=== PATIENT | female | born 1935 | race Caucasian/White ===

== ENCOUNTER → 2016-11-20 | Outpatient (CLI) | payer OTHER ==
[~2016-11-20] MED LIST: ALDACTONE PO; ALDACTONE25 MG PO; AMLODIPINE BESYL5 MG PO; ASPIRIN PO; ASPIRIN81 M2 PO; AZITHROMYCIN250 MG PO; BAYER CHEWABLE81 MG PO; CALCIUM 500 + D1 TAB; CALCIUM 600 +1 EAC5 PO; CENTRUM SILVER; CLARITIN10 M3 PO; CLONIDINE; COUMADIN PO; COUMADIN5 MG PO; DICLOFENAC; DOK100 MG PO; FAMOTIDINE; FUROSEMIDE40 MG PO; HYDROCODON-ACE1 EAC7 PO; IRON325 ( 652 PO; IRON325 MG PO; KCL; KEFLEX500 MG PO; LASIX; LASIX PO; LATANOPROST2.5 ML OU; LIPITOR; LIPITOR20 MG PO; LOPRESSOR PO; LOTREL 10/20 MG1 CAP; MULTIPLE VITAMI1 T11 PO; MULTIVITAMINS1 EAC3 PO; NEXIUM; NORVASC PO; PATIENT'S PHARMACY; PLAVIX; PREVACID; PROAIR HFA8.5 GM INH; SLOW FE160 MG PO; SOTALOL AF80 M1 PO; SULAR PO; TOPROL XL; TYLOX 5/500 CAP1 CAP PO; VITAMIN B-6; XALATAN; ZYVOX600 MG PO
--- NOTE | ~2016-11-20 | XA30 ---
[facility] A Service of [facility] & [facility] RADIOLOGY TEXT RESULTS PATIENT: MARTINEZ NYE [facility] : 33 UNIT #: [id number] AGE: [address]: Russell Heart MD SEX: F ORDER DR: [id number] [facility] [address] [place], [place] [address] [id number] O MR#: [id number] Acc #: [id number] NAME: MARTINEZ NYE : 1935 SEX: F STUDY DATE/TIME: 11/20/2016 10:48 UNIT: [facility] ROOM: STUDY DESCRIPTION: XA Arthrocentesis Major Joint Attending Physician: Russell Heart M.D. Ordering Physician: Russell Heart M.D. Primary Care Physician: Jonathan Lorenz Jr., M.D. MEDICAL IMAGING REPORT This report is preliminary unless electronic signature is present EXAM Left hip injection. INDICATION Left hip pain and arthritis. PROCEDURE The risks, benefits, and alternatives to the procedure were explained to the patient, and signed informed consent was obtained. The patient was placed supine on the angiographic table and was prepped and draped in the usual sterile fashion. Time-out was performed as per protocol. Skin and subcutaneous tissues were assessed with buffered lidocaine and a 22-gauge spinal needle was advanced into the joint space. Initial contrast showed opacification of the bursa and I subsequently repositioned the needle. Contrast injection did confirm location within the joint space. I instilled a combination of lidocaine, bupivacaine and Depo-Medrol. Needle was then removed and manual pressure was applied until hemostasis was obtained. Total fluoroscopy time 0.3 minutes. AK was 3 mGy. IMPRESSION Successful fluoroscopically guided left hip injection as noted above. Fluoroscopy was used during the procedure and permanent images were saved. Dictated by... Mackenzie Braden M.D. THIS IS AN ELECTRONICALLY VERIFIED REPORT Mackenzie Braden M.D. at 11/21/2016 5:21 PM AFF/tmw TD: 11/21/2016 09:28 [facility] A Service of [facility] & [facility] RADIOLOGY TEXT RESULTS PATIENT: MARTINEZ NYE LOCATION: [facility] #: [id number] : [birth year] UNIT #: [id number] AGE: [address]: Russell Heart MD SEX: F ORDER DR: JOB #: [id number] MEDICAL IMAGING REPORT Page 1 of 1 COPY
== END | disposition home or self-care (01) ==
LOC: CIVR 10:21
PROC: 3E0U33Z Introduction of Anti-inflammatory into Joints, Percutaneous Approach (ICD-10-PCS; principal; 2016-11-20)
PROC: 3E0U3BZ Introduction of Anesthetic Agent into Joints, Percutaneous Approach (ICD-10-PCS; 2016-11-20)
DX: M25.552 Pain in left hip (principal); M19.90 Unspecified osteoarthritis, unspecified site
CPT/HCPCS: 77002; J1030; Q9966

== ENCOUNTER → 2016-12-05 | Outpatient (CLI) | payer OTHER ==
--- NOTE | ~2016-12-05 | BD1 ---
[facility] A Service of [facility] & [facility] RADIOLOGY TEXT RESULTS PATIENT: MARTINEZ NYE LOCATION: [facility] : 33 UNIT #: [id number] AGE: [address]: Jonathan Lorenz MD SEX: F ORDER DR: [id number] [facility] [address] [place], [place] [address] [id number] O MR#: [id number] Acc #: [id number] NAME: MARTINEZ NYE : 1935 SEX: F STUDY DATE/TIME: 12/05/2016 10:06 UNIT: [facility] ROOM: STUDY DESCRIPTION: BD Dexa Bone Dens 1+ Site Attending Physician: Jonathan Lorenz Jr., M.D. Ordering Physician: Jonathan Lorenz Jr., M.D. Primary Care Physician: Jonathan Lorenz Jr., M.D. MEDICAL IMAGING REPORT This report is preliminary unless electronic signature is present EXAM DEXA scan 12/05/2016 HISTORY Status post menopause with no hormone replacement therapy. Osteopenia. Hypertension with blood pressure medication. Steroid use. Fracture of femur and wrist in last 10 years. FINDINGS Bone mineral density in the lumbar spine from L1-L4 was 1.117 g/cm2 which is 0.6 standard deviations above the mean when compared to the young adult reference population which is within the range of normal. This is 3.5 standard deviations above the mean when compared to the age-matched population. Compared with 10/17/2009 there has been an increase in bone mineral density in the lumbar spine of 5.1%. Bone mineral density in the right hip was 0.805 g/cm2 which is 1.1 standard deviations below the mean when compared to the young adult reference population which is characteristic of osteopenia. This is 1.1 standard deviations above the mean when compared to the age-matched population. IMPRESSION Bone mineral density in the lumbar spine within the range of normal and within the right hip characteristic of osteopenia. Compared with 10/17/2009 there has been an increase in bone mineral density in the lumbar spine. Dictated by... Donald Rodrigues M.D. THIS IS AN ELECTRONICALLY VERIFIED REPORT Donald Rodrigues M.D. at 12/06/2016 8:02 AM KRT/cmm [facility] A Service of [facility] & [facility] RADIOLOGY TEXT RESULTS PATIENT: MARTINEZ NYE LOCATION: [facility] #: [id number] : 33 UNIT #: [id number] AGE: [address]: Jonathan Lorenz MD SEX: F ORDER DR: TD: 12/05/2016 12:58 JOB #: [id number] MEDICAL IMAGING REPORT Page 1 of 1 COPY
== END | disposition home or self-care (01) ==
LOC: CWCC 09:32
DX: Z13.820 Encounter for screening for osteoporosis (principal); M97.8XXA Periprosthetic fracture around other internal prosthetic joint, initial encounter; Z78.0 Asymptomatic menopausal state; M85.88 Other specified disorders of bone density and structure, other site
CPT/HCPCS: 77080

== ENCOUNTER 2016-12-11 10:08 | Inpatient (IN) | payer OTHER ==
--- NOTE | ~2016-12-11 | CO ---
Unit #: [id number] #: [id number] Patient: MARTINEZ NYE [id number] [address] [address] [id number] I MR#: [id number] NAME: MARTINEZ NYE. ROOM: 569 Age: 81 Sex: F Admission Date: 12/11/2016 : 1935 Attending Physician: Joseph Reis M.D. Primary Care Physician: Jonathan Lorenz Jr., M.D. CONSULTATION REPORT REASON FOR CONSULTATION Pneumonia. CHIEF COMPLAINT/HISTORY OF PRESENT ILLNESS This patient basically is an 81-year-old female admitted with impression of shortness of breath. Has a history of atrial fibrillation, sick sinus syndrome, coronary artery disease with pulmonary hypertension, carotid artery disease, recently took amoxicillin and steroids. Has not been feeling well. Currently, has been getting worse and was found to be coagulopathic. CT chest showed bilateral infiltrates. I am seeing her at the bedside. She denies any nausea, vomiting, diarrhea. PAST MEDICAL HISTORY 1. Atrial fibrillation. 2. AVR. 3. Hypertension. 4. Peripheral vascular disease. 5. Sick sinus syndrome. 6. Coronary artery disease. 7. Pulmonary hypertension. 8. Carotid endarterectomy. 9. Permanent pacemaker. 10. Bilateral knee replacement. SOCIAL HISTORY Nonsmoker. No alcohol. No drug abuse. FAMILY HISTORY None, as per record. MEDICATIONS As per MAR, has been reviewed. ALLERGIES Have been reviewed. PHYSICAL EXAMINATION VITAL SIGNS: Temperature 98, pulse (1) , respiration 12, blood pressure (2) . NEUROLOGIC: Awake, alert, oriented. No neuro deficit. HEENT: PERRLA plus 1. NECK: Supple. No JVD. CHEST: Bilateral air entry. Bilateral mild rhonchi. GASTROINTESTINAL: Nontender, soft. Bowel sounds positive. Unit #: [id number] #: [id number] Patient: MARTINEZ NYE EXTREMITIES: No edema. SKIN: No rash. No ulcer. LYMPHATIC: No lymphadenopathy. DIAGNOSTIC STUDIES Labs and imaging have been reviewed. ASSESSMENT 1. Bilateral pneumonia, failed outpatient treatment. 2. Atrial fibrillation. PLAN Plan is to admit the patient. Plan is to continue oxygen, continue bronchodilator, and continue patient on IV antibiotics including Zithromax and Rocephin. Procalcitonin level. Patient will be closely monitored. Please see orders for detailed plan. Thank you very much for this consultation. Will consider bronchoscopy. Dictated by... Tyler Garcia TD: 12/12/2016 12:37 JOB #: [id number] CONSULTATION REPORT Page 1 of 1 X Patricia Oneal MD X CONSULTATION REPORT
--- NOTE | ~2016-12-11 | CO ---
Unit #: [id number] #: [id number] Patient: MARTINEZ NYE [id number] [address] [place], [place] [address] [id number] I MR#: [id number] NAME: MARTINEZ NYE ROOM: 569 Age: 81 Sex: F Admission Date: 12/11/2016 : 1935 Attending Physician: Joseph Reis M.D. Primary Care Physician: Jonathan Lorenz Jr., M.D. Consultation Date: 12/11/2016 CONSULTATION REPORT REASON FOR CONSULTATION Acute on chronic sessile congestive heart failure. HISTORY OF PRESENT ILLNESS This is an 81-year-old white female who is well known to Dr. Neely. She has had an aortic valve replacement with a bioprosthetic valve in 2006. Also, in 2005 had an angioplasty and stent placed to the proximal ostial, also paroxysmal atrial fibrillation, has been on Coumadin, hypertension, has a permanent pacemaker. Last BRENDA was done in 2013 that showed an LVEF of 45% to 50% with moderate mitral regurgitation. The patient presented to the emergency room after having over a week long history of increased cough, chest congestion, head congestion, feeling fatigued and increased shortness of breath that was worsening, especially with exertion. According to the patient, she went to see Dr. Lorenz about a week ago and he started her on antibiotics, steroids along with some cough medicine. She said she felt good for about four to five days and this past Saturday the symptoms started to progressively worsen. She said she noticed that she just feels like she can't take in a deep breath. She says she continues to have almost persistent productive cough. She denies any hematemesis or hemoptysis. She has not had any fever or chills. She denies any increased lower extremity edema. She denies any chest pain, pain in her neck, bilateral jaws, shoulders, arms or elbow. She denies any palpitations. No dizziness, presyncope or syncope. In the emergency room, the patient's blood pressure was found to be 170/98, heart rate 86, respirations 16, temperature 99.1, O2 sats 94% on room air. The patient's chest x-ray showed increased interstitial markings bilaterally, the right greater than left. EKG shows sinus rhythm with nonspecific changes. Initial labs - BNP is 229, INR was 5.1, BUN 27, creatinine 1.0, troponin less than 0.05. WBCs are 16.5. The patient was given a dose of IV Lasix 40 mg along with some IV antibiotics. She is getting a CT of the chest to evaluate for a possible pneumonia and also patient does report that she had a chest x-ray in Dr. Lorenz's office and he said something about a lung nodule. The patient is active with Dr. Neely. She was last seen in July of this year and had been doing fairly well. Dr. Lorenz checks her INR. PAST MEDICAL HISTORY 1. Coronary artery disease, status post PCI and stent to the proximal ostium in 2005. 2. History of aortic valve replacement with a bioprosthetic valve in 2006. 3. Paroxysmal atrial fibrillation, on Coumadin. 4. Permanent pacemaker, [employer]. Unit #: [id number] #: [id number] Patient: MARTINEZ NYE 5. Hypertension. 6. Hyperlipidemia. 7. Peripheral vascular disease, status post bilateral carotid endarterectomy 01/2016 and 05/2016. 8. 2013 transesophageal echocardiogram revealed LVEF of 45% to 50%, no AST or shunt, left atrium moderately dilated, right atrium mild to moderately dilated, moderate mitral regurgitation, mild to moderate tricuspid regurgitation, bioprosthetic aortic valve with peak gradient 53 mmHg and mean gradient 27 mmHg. Calcified leaflet that opens well. 9. Nonsmoker. PAST SURGICAL HISTORY 1. Permanent pacemaker, [employer]. 2. Aortic valve replacement with a bioprosthetic valve in 2006. 3. Bilateral carotid endarterectomy 01/2016 and 05/2016. 4. Status post PCI and stent to the proximal ostium in 2005. 5. Left knee replacement. 6. Right knee replacement. 7. Left eardrum patch. 8. Colon surgery in 2009. 9. Thoracentesis x3. MEDICATIONS 1. Coumadin 5 mg p.o. daily. 2. Aldactone 25 mg p.o. daily. 3. Lasix 40 mg p.o. daily. 4. Lipitor 20 mg p.o. daily. 5. Norvasc 5 mg p.o. daily. 6. Sotalol 80 mg p.o. twice daily. 7. Latanoprost, one drop both eyes at bedtime. 8. Multivitamin, one tablet daily. 9. Iron tablet, 325 mg, one tablet daily. 10. Hydrocodone/acetaminophen 5/325, one tablet p.o. twice daily p.r.n. 11. Metoprolol 75 mg p.o. twice daily. ALLERGIES Amiodarone, Pacerone, causes severe tremor with the legs and hands. SOCIAL HISTORY The patient lives with her spouse. She is a lifetime nonsmoker. No alcohol or illicit drug abuse. FAMILY HISTORY Unremarkable. REVIEW OF SYSTEMS See details in HPI. PHYSICAL EXAMINATION GENERAL: On exam, Ms. Nye is an 81-year-old white female in no acute respiratory distress. She is awake, alert and oriented. VITAL SIGNS: Currently, blood pressure is 156/64, heart rate is 88, respirations 26, temperature was 99.1, later 98.9. O2 sat was 94% on room air, then 92%, now 98% on 2 L. NECK: Trachea midline. No thyromegaly or lymphadenopathy. Normal carotid upstrokes. Mild jugular venous distention. HEART: S1, S2. Click murmur noted from valve. Unit #: [id number] #: [id number] Patient: MARTINEZ NYE LUNGS: Diminished with a few faint rales in the bases and some scattered rhonchi in upper airways. ABDOMEN: Soft, nontender. Positive bowel sounds present. EXTREMITIES: Pedal pulses are palpable. No pedal edema. DIAGNOSTIC STUDIES LABORATORY: Glucose is 245, BUN 27, creatinine 1.0, eGFR 52.1, sodium 136, potassium 3.9, chloride 97, CO2 28, calcium 9.5, total protein 8.6, albumin 3.4, bili total 0.8, AST 16, ALT 16, alkaline phos. is 83. BNP is 229. WBC is 16.5, hemoglobin 11.9, hematocrit 36.5, and platelets 315. Initial cardiac enzymes - CK MB 1.1 with troponin less than 0.05, protime is 57.3 with an INR of 5.1. IMAGING: Chest x-ray shows interstitial markings diffusely increased through both lungs, greater on the right than on the left, suggestive of edema. CARDIOVASCULAR: EKG shows normal sinus rhythm with ventricular rate 88 beats/minute, could possibly be ventricular paced, effusion. Underlying normal sinus rhythm. Poor R wave progression. Left ventricular hypertrophy. Nonspecific ST-T wave abnormalities in inferior lateral leads. IMPRESSION 1. Acute exacerbation of chronic obstructive pulmonary disease, questionable pneumonia. 2. History of lung nodule. 3. Acute on chronic systolic congestive heart failure, left ventricular ejection fraction of 45% to 50% on BRENDA in 2013. 4. Coumadin toxicity. 5. History of aortic valve replacement with a bioprosthetic valve. 6. History of coronary artery disease, previous PCI and stent to the proximal ostium in 2005. 7. Paroxysmal atrial fibrillation, on Coumadin. 8. Bilateral carotid endarterectomies in 2016. 9. Permanent pacemaker. 10. Hypertension. 11. Hyperlipidemia. 12. Nonsmoker. PLAN 1. Cardiology consulted to assist with evaluation and management for congestive heart failure. Continue to gently diurese with IV Lasix, strict intake and output, daily weight, 1800 mL 24 hour fluid restriction along with 2 g sodium diet. Provide patient with CHF education. 2. Will hold patient's Coumadin until the INR is in the therapeutic range. There is no evidence of any signs or symptoms of any acute bleeding. Denies hemoptysis, hematemesis, melena. 3. Recheck 2D echo to re-evaluate LV function and valves. Last echocardiogram was back in 2013. 4. On exam, there are no signs or symptoms of unstable angina. Cardiac enzymes so far are negative. 5. Will monitor labs, especially BUN, creatinine, electrolytes and supplement when needed. Unit #: [id number] #: [id number] Patient: MARTINEZ NYE 6. Remains in normal sinus rhythm on sotalol and metoprolol. 7. Further recommendations pending per Dr. Mas. The patient did have a CT of the chest to evaluate if patient has pneumonia versus just bronchitis and also to evaluate for CHF. On exam, patient appears dyspneic, her lungs are diminished with some faint rales and some rhonchi but there is no lower extremity edema. She did have a dose of Lasix and she is responding well to the diuresing. Thank you very much for allowing us to assist in this care. Dictated by... Dorothy Pop, Jaren.P.R.N. for Amol Mas M.D. KERVIN/yuly TD: 12/12/2016 08:02 JOB #: [id number] CONSULTATION REPORT Page 1 of 1 X Dorothy Pop APRN CONSULTATION REPORT
--- NOTE | ~2016-12-11 | CR72 ---
[facility] A Service of [facility] & [facility] RADIOLOGY TEXT RESULTS PATIENT: MARTINEZ NYE LOCATION: [facility] : 33 UNIT #: [id number] AGE: [address]: RAFFY DIA MD SEX: F ORDER DR: [id number] [facility] [address] [place], [place] [address] [id number] MR#: [id number] Acc #: [id number] NAME: MARTINEZ NYE : 1935 SEX: F STUDY DATE/TIME: 12/11/2016 10:44 UNIT: [facility] ROOM: STUDY DESCRIPTION: CR Chest Single View Portable Attending Physician: Colby No M.D. Ordering Physician: Colby No M.D. Primary Care Physician: Jonathan Lorenz Jr., M.D. MEDICAL IMAGING REPORT This report is preliminary unless electronic signature is present EXAM Chest portable, 12/11/2016 10:44 hours HISTORY 81-year-old woman with 1-week history of cough, shortness of air, congestion, bronchitis. History of hypertension and coronary stent and pacemaker. COMPARISON 12/03/2016 FINDINGS Upright PA and lateral views of the chest demonstrate median sternotomy change with mild to moderate cardiomegaly and pacer device unchanged. The interstitial markings of the lungs are diffusely increased slightly greater in the right lung than the left lung. Findings are most suggestive of interstitial edema rather than pneumonia. No definite effusion is seen. IMPRESSION 1. Median sternotomy change with heart size mildly prominent but unchanged. Stable pacer device. 2. Interstitial markings are diffusely increased through both lungs greater on the right than on the left since 12/03/2016. Findings are most suggestive of edema, less likely infection. No pleural effusion or pneumothorax. STAT * RESULT Dictated by... Abena Long M.D. THIS IS AN ELECTRONICALLY VERIFIED REPORT [facility] A Service of [facility] & [facility] RADIOLOGY TEXT RESULTS PATIENT: MARTINEZ NYE LOCATION: [place] [id number] : 31 UNIT #: [id number] AGE: [address]: RAFFY DIA MD SEX: F ORDER DR: Abena Long M.D. at 12/11/2016 2:30 PM Isai TD: 12/11/2016 11:09 JOB #: [id number] MEDICAL IMAGING REPORT Page 1 of 1 COPY
--- NOTE | ~2016-12-11 | HP ---
Unit #: [id number] #: [id number] Patient: MARTINEZ NYE [id number] [address] [address] [id number] I MR#: [id number] NAME: MARTINEZ NYE ROOM: 27861 Age: 81 Sex: F Admission Date: 12/11/2016 : 1935 Attending Physician: Sapna Foy M.D. Primary Care Physician: Jonathan Lorenz Jr., M.D. HISTORY AND PHYSICAL CHIEF COMPLAINT Shortness of breath. HISTORY OF PRESENT ILLNESS The patient is an 81-year-old female with a past medical history of AVR, atrial fibrillation, hypertension, peripheral vascular disease, sick sinus syndrome, coronary artery disease, pulmonary hypertension, carotid endarterectomy who presented to the emergency room with shortness of breath. The patient was seen by the PCP one week ago and was started on oral antibiotics, amoxicillin, along with a steroid shot. The patient took the antibiotics for a week and continued to have shortness of breath associated with a nonproductive cough. The patient was recommended to come to the emergency room for further evaluation. The patient denies any fever, chills, nausea, vomiting. Denies any chest pain. the patient's chest x-ray shows interstitial markings are diffusely increased through both lungs, greater on the right than on left since December 03, 2016. Findings are most suggestive of edema. INR is level is 5.1, and the patient is being admitted for the above reasons. PAST MEDICAL HISTORY 1. History of atrial fibrillation. 2. AVR. 3. Hypertension. 4. Peripheral vascular disease. 5. Sick sinus syndrome. 6. Coronary artery disease. 7. Pulmonary hypertension. PAST SURGICAL HISTORY 1. Carotid endarterectomy. 2. Permanent pacemaker placement. 3. History of coronary artery bypass grafting. 4. Bilateral knee replacement. SOCIAL HISTORY No history of smoking alcohol or any illicit drug abuse. FAMILY HISTORY Reviewed and none. ALLERGIES No known drug allergies. HOME MEDICATIONS Unit #: [id number] #: [id number] Patient: MARTINEZ NYE 1. Coumadin. 2. Aldactone. 3. Lasix. 4. Lipitor. 5. Norvasc. 6. Sotalol. 7. Latanoprost. 8. Multivitamins. 9. Iron. 10. Lopressor. REVIEW OF SYSTEMS A 14-point review of systems performed and only pertinent positive findings are described above, remaining are negative. PHYSICAL EXAMINATION GENERAL: The patient is lying on a bed, not in acute distress. VITAL SIGNS: Temperature is 99.1, pulse 83, respiratory rate 16, blood pressure 170/98, saturating 94% on room air. HEENT: Atraumatic, normocephalic. Pupils equal, round, and reactive to light and accommodation. Extraocular movements are intact. Dry mucous membranes. NECK: Supple. LUNGS: Decreased air entry at the bases. Positive for rales. HEART: Regular rate and rhythm. Positive for murmur. ABDOMEN: Soft. Positive bowel sounds. EXTREMITIES: No cyanosis. No clubbing. NEUROLOGIC: Alert, awake, oriented. No gross focal motor deficit. DIAGNOSTIC STUDIES LABORATORY: Glucose 245, BUN 27, creatinine 1, sodium 136, potassium 3.9, chloride 97, bicarbonate 28, calcium 9.5. Total protein 8.6, albumin 3.4, total bilirubin 0.8, AST 16, ALT 16, alkaline phosphatase 83. BNP 229. INR is 5.1. WBC 16.5, hemoglobin 11.9, hematocrit 36.5, platelets 350,000. Neutrophils 84.6. IMAGING: Chest x-ray shows median sternotomy. Change with heart size mildly prominent but unchanged. Stable pacer device. Interstitial markings are diffusely increased through both lungs, greater on the right than on the left since December 03, 2016. Findings are most suggestive of edema, less likely infection. No pleural effusions or pneumothorax. CARDIOVASCULAR: EKG shows normal sinus rhythm with a rate of 88 beats per minute and nonspecific ST-T changes. ASSESSMENT 1. Interstitial edema. 2. Coumadin toxicity. 3. Acute on chronic systolic congestive heart failure. 4. Hypoxia (1) . 5. Atrial fibrillation. PLAN Plan to admit the patient to the inpatient. The patient will have a cardiology consult for the CHF and will check the CT of the chest without contrast to rule out pneumonia with history of lung nodules. Will continue with her diuresis, 40 mg IV daily. Hold Coumadin tonight and repeat the CBC and BMP in the morning. Further recommendations will Unit #: [id number] #: [id number] Patient: MARTINEZ NYE gustabo as more lab results are available. Dictated by Tyler Car TD: 12/11/2016 15:04 JOB #: [id number] HISTORY AND PHYSICAL Page 1 of 1 X X HISTORY AND PHYSICAL
--- NOTE | ~2016-12-11 | OR ---
Unit #: [id number] #: [id number] Patient: MARTINEZ NYE [id number] [address] [address] [id number] I MR#: [id number] NAME: MARTINEZ NYE ROOM: 569 Date of Procedure: 12/13/2016 Admission Date: 12/11/2016 Surgeon: Patricia Oneal M.D. : 1935 Attending Physician: Joseph Reis M.D. Primary Care Physician: Jonathan Lorenz Jr., M.D. PROCEDURE OPERATIVE NOTE PREOPERATIVE DIAGNOSIS Pneumonia. POSTOPERATIVE DIAGNOSIS Pneumonia. PROCEDURE PERFORMED Diagnostic bronchoscopy. PROCEDURE After taking consent from the patient, after explaining the risks and benefits, the patient was placed in the appropriate position. The bronchoscope was introduced through the oral cavity. The vocal cords appeared to be symmetrically moving toward the midline. Trachea was normal. The kerrie was sharp. We examined the right upper, right middle right lower lobe, left upper lobe, lingula and left lower lobe. No endobronchial lesions were found. There were thick mucoid secretions in both lungs, which were therapeutically suctioned. Then we did a bronchoalveolar lavage in the right middle lobe area with 60 ml of saline in and 30 ml back. The patient tolerated the procedure very well with no complications. Dictated by... Tyler Garcia TD: 12/13/2016 11:13 JOB #: [id number] PROCEDURE OPERATIVE NOTE Page 1 of 1 X Patricia Oneal MD X PROCEDURE OPERATIVE NOTE
--- NOTE | ~2016-12-11 | DS ---
Unit #: [id number] #: [id number] Patient: MARTINEZ NYE [id number] [place] [id number] [facility] [place] [facility]. [place], [place] [address] [id number] I MR#: [id number] NAME: MARTINEZ NYE. ROOM: 569 Age: 81 Sex: F Admission Date: 12/11/2016 : 1935 Discharge Date: 12/14/2016 Attending Physician: Joseph Reis M.D. Primary Care Physician: Jonathan Lorenz Jr., M.D. DISCHARGE SUMMARY DIAGNOSES ON ADMISSION 1. Coumadin toxicity. 2. Interstitial edema. DIAGNOSES ON DISCHARGE 1. Coumadin toxicity, improved. 2. Bilateral pneumonia. 3. Acute on chronic systolic congestive heart failure, improved. 4. 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 5. History of coronary artery disease status post stent. 6. Paroxysmal atrial fibrillation. 7. History of carotid artery disease status post bilateral carotid endarterectomy. 8. Status post permanent pacemaker. 9. Hypertension. 10. Hyperlipidemia. CONSULTATIONS 1. Dr. Oneal in pulmonary consultation. 2. Dr. Neely in cardiology consultation. PROCEDURES DONE The patient had a bronchoscopy done, which did not reveal any endobronchial lesion. DIAGNOSTIC STUDIES CARDIOVASCULAR: The patient had a two-D echocardiogram done, which revealed ejection fraction of 55% to 60%. The patient had a bioprosthetic aortic valve with gkixkzul-yf-yxbisn stenosis. There was mild tricuspid regurgitation and mitral regurgitation present. HOSPITAL COURSE This 81-year-old female was admitted to [facility] with shortness of air. Details are as per admission H and P. Bilateral pneumonia. Patient had a CT scan of the chest done, which revealed bilateral infiltrates. Dr. Oneal saw the patient in consultation and performed a bronchoscopy. Bronchial secretions are currently pending, but there was no endobronchial lesion. He has suggested to discharge the patient home on Zithromax and follow with him in 2 weeks. Coumadin toxicity. Patient's INR is 2.7 today. Unit #: [id number] #: [id number] Patient: MARTINEZ NYE Acute congestive heart failure. Patient was seen by cardiology in consultation. She is feeling much better. Bioprosthetic aortic stenosis. Patient will be seen by cardiology in outpatient followup and may need a transesophageal echocardiogram. Today, the patient is comfortable and is not in any acute distress, wants to go home. RECOMMENDATIONS ON DISCHARGE 1. Condition is stable. 2. Activity is as tolerated. DISCHARGE MEDICATIONS 1. Coumadin 2.5 mg p.o. daily. 2. Norvasc 5 mg p.o. daily. 3. Lopressor 75 mg p.o. b.i.d. 4. Sotalol 80 mg p.o. b.i.d. 5. Lasix 40 mg p.o. daily. 6. Lipitor 20 mg p.o. q.h.s. 7. Iron sulfate 324 mg p.o. daily. 8. Xalatan eyedrops 1 drop each eye at bedtime. 9. Multivitamin 1 tablet p.o. daily. 10. Zithromax 250 mg p.o. daily for 5 days. 11. Enteric-coated aspirin 81 mg p.o. daily. 12. [place] 5 mg 1 p.o. b.i.d. p.r.n. 13. Spironolactone 25 mg p.o. daily. FOLLOW-UP 1. Patient is advised to follow up with primary care physician in 1 week and have CBC and BMP done. 2. Patient is advised to follow up with cardiology as recommended and with Dr. Oneal in 2 weeks. 3. Patient is advised to call primary care physician or go to ER if her condition changes. NOTE: The plan was discussed in detail with the patient and her . The patient states that she is doing much better, and she wants to go home. Dictated by... Tyler Saenz TD: 12/14/2016 15:02 JOB #: [id number] DISCHARGE SUMMARY Page 1 of 1 X Joseph Reis MD X DISCHARGE SUMMARY
--- NOTE | ~2016-12-11 | EKG ---
PATIENT: MARTINEZ NYE UNIT #: [id number] Ventricular Rate: 88 BPM Atrial Rate: 88 BPM P-R Interval: 140 ms QRS Duration: 86 ms Q-T Interval: 382 ms QTC Calculation(Bezet): 462 ms P [place]: 82 degrees Calculated R [place]: 64 degrees Calculated T [place]: 106 degrees Diagnosis Line: Normal sinus rhythm Diagnosis Line: Nonspecific ST and T wave abnormality Diagnosis Line: Abnormal ECG Diagnosis Line: When compared with ECG of 23-MAY-2016 14:59, Diagnosis Line: Sinus rhythm has replaced Electronic atrial Diagnosis Line: pacemaker Diagnosis Line: Confirmed by ANA HARTLEY MD ([id number]) on Diagnosis Line: 12/11/2016 3:50:34 PM INTERPRETING MD: NAEEM LARA
--- NOTE | ~2016-12-11 | CT57 ---
[facility] A Service of [facility] RADIOLOGY TEXT RESULTS PATIENT: MARTINEZ NYE LOCATION: [facility] 569-01 : [birth year] UNIT #: [id number] AGE: [address]: Joseph Reis MD SEX: F ORDER DR: [id number] [facility] [address] [place], [place] [address] [id number] I MR#: [id number] Acc #: [id number] NAME: MARTINEZ NYE : 1935 SEX: F STUDY DATE/TIME: 12/11/2016 14:36 UNIT: [facility] ROOM: 9 STUDY DESCRIPTION: CT Chest Wo Cont Attending Physician: Sapna Foy M.D. Ordering Physician: Colby No M.D. Primary Care Physician: Jonathan Lorenz Jr., M.D. MEDICAL IMAGING REPORT This report is preliminary unless electronic signature is present EXAM CT chest without contrast. INDICATION Bronchitis since last week. Patient reports she feels worse today. She has had congestion and shortness of breath for 1 week. She was admitted to the hospital with Coumadin toxicity and interstitial edema. This was diagnosed on a chest radiograph performed this morning. TECHNIQUE This CT exam was performed with one or more of the following radiation dose reduction techniques: automatic exposure control, adjustment of mA and/or kV according to patient size, and iterative reconstruction. Axial CT images were obtained from thoracic inlet through the dome of the diaphragm. No intravenous contrast material was administered. FINDINGS Patchy multifocal infiltrates are seen throughout both lungs most in keeping with multifocal pneumonia. Some of these have a more nodular appearance including one within the right lower lobe measuring up to about a centimeter in size, one within the left upper lobe measuring about 1.4 x 1.1 cm, and an additional one measuring up to about 6 mm in size within the left upper lobe. Some tree-in-bud infiltrates are seen within both lungs, although slightly more pronounced on the right. Pleural scarring is seen on the right as well. There is a moderate hiatal hernia. There are coronary artery calcifications. Thoracic aorta measures within normal size limits. There is some prominent mediastinal lymph nodes but similar findings were actually present in January 2016 as well. There is no pleural or pericardial effusion. Images through the upper abdomen demonstrate cholelithiasis. I [facility] A Service of [facility] RADIOLOGY TEXT RESULTS PATIENT: MARTINEZ NYE LOCATION: [place] [address] : [birth year] UNIT #: [id number] AGE: [address]: Joseph Reis MD SEX: F ORDER DR: do not see any acute abnormalities within the upper abdomen. Review of bone windows does not demonstrate any aggressive osseous abnormalities. There is some discogenic degenerative disease of the spine. IMPRESSION 1. Patchy multifocal infiltrates identified throughout both lungs characteristic of multifocal pneumonia given history. I would however suggest short-term CT followup in 3 months to document resolution of this process as some of these areas have a more nodular component. 2. Extensive atherosclerotic involvement of the thoracic aorta and coronary arteries. 3. Moderate hiatal hernia. 4. Cholelithiasis without any evidence of acute cholecystitis. Dictated by... Mackenzie Braden M.D. THIS IS AN ELECTRONICALLY VERIFIED REPORT Mackenzie Braden M.D. at 12/12/2016 10:56 AM AME/lakeisha TD: 12/11/2016 22:48 JOB #: [id number] MEDICAL IMAGING REPORT Page 1 of 1 COPY
--- NOTE | ~2016-12-11 | EKG ---
PATIENT: MARTINEZ NYE UNIT #: [id number] Ventricular Rate: 60 BPM Atrial Rate: 60 BPM P-R Interval: 184 ms QRS Duration: 88 ms Q-T Interval: 454 ms QTC Calculation(Bezet): 454 ms P [place]: 30 degrees Calculated R [place]: 63 degrees Calculated T [place]: 123 degrees Diagnosis Line: Electronic atrial pacemaker Diagnosis Line: ST and T wave abnormality, consider lateral ischemia Diagnosis Line: Abnormal ECG Diagnosis Line: When compared with ECG of 11-DEC-2016 10:43, Diagnosis Line: Electronic atrial pacemaker has replaced Sinus Diagnosis Line: rhythm Diagnosis Line: Inverted T waves have replaced nonspecific T wave Diagnosis Line: abnormality in Lateral leads Diagnosis Line: Confirmed by HALLIE MCCLELLAN MD ([id number]) on Diagnosis Line: 12/15/2016 9:46:07 AM INTERPRETING MD: SARAH
[~2016-12-11 10:08] MED LIST changes: -AZITHROMYCIN250 MG PO; -BAYER CHEWABLE81 MG PO; -COUMADIN PO; -IRON325 MG PO; -MULTIVITAMINS1 EAC3 PO; -NORVASC PO; -PATIENT'S PHARMACY
[2016-12-11 11:11] LABS: BASOPHIL% 0.3 % (0-2.5); EOSINOPHIL# 0.1 X10e3 (0-0.7); EOSINOPHIL% 0.6 % (0.0-7.0); HEMATOCRIT 36.5 % (35.0-45.0); HEMOGLOBIN 11.9 gm/dL (12.0-16.0); LYMPHOCYTE# 1.5 X10e3 (1.0-3.5); LYMPHOCYTE% 9.1 % (17.0-45.0); MEAN CELL VOLUME 91.9 FL (83-96); MEAN CORPUSCULAR HGB CONC 32.6 g/dL (30-36); MEAN PLATELET VOLUME 7.9 FL (6.5-11.5); MONOCYTE# 0.9 X10e3 (0-1.0); MONOCYTE% 5.4 % (3.0-12.0); NEUTROPHIL% 84.6 % (40-75); PLATELET COUNT 350 X10e3 (140-420); RED BLOOD COUNT 3.97 X10e (3.90-5.30); RED CELL DISTRIBUTION WIDTH 14.8 % (11.0-15.5); WHITE BLOOD COUNT 16.5 X10e3 (4.0-10.5)
[2016-12-11 11:12] LABS: DIFF IND YES
[2016-12-11 11:30] LABS: ANISOCYTOSIS SL; PLATELET ESTIMATE NORMAL (NORMAL); RBC NORMAL YES
[2016-12-11 11:31] LABS: ALBUMIN SERUM 3.4 g/dL (3.5-5.0); BILIRUBIN, DIRECT 0.2 mg/dL (0.0-0.2); BILIRUBIN,INDIRECT 0.6 mg/dL (0.0-0.9); BILIRUBIN,TOTAL 0.8 mg/dL (0.2-2.0); CALCIUM SERUM 9.5 mg/dL (8.4-10.2); GLOM FILT RATE Estimated 52.1 mL/min (>60); POTASSIUM 3.9 mmol/L (3.5-5.1); PROTEIN TOTAL SERUM 8.6 g/dL (6.0-8.3)
[2016-12-11 11:38] LABS: INR 5.1; PARTIAL THROMBOPLASTIN TIME 48.1 SECONDS (23.5-31.3); PROTHROMBIN TIME (PATIENT) 57.3 SECONDS (9.6-11.5)
[2016-12-11 12:33] LABS: POC - CKMB 1.1 ng/mL (0.0-7.9); POC - TROPONIN <0.05 ng/mL (<=0.05)
[2016-12-11] MEDS ORDERED: COUMADIN PO (12:55)
[2016-12-11] MEDS ORDERED: ALDACTONE PO (12:55)
[2016-12-11] MEDS ORDERED: PATIENT'S PHARMACY (12:55)
[2016-12-11] MEDS ORDERED: LASIX PO (12:55)
[2016-12-11] MEDS ORDERED: NORVASC PO (12:56)
[2016-12-11] MEDS ORDERED: LIPITOR20 MG PO (12:56)
[2016-12-11] MEDS ORDERED: SOTALOL AF80 M1 PO (12:57)
[2016-12-11] MEDS ORDERED: LATANOPROST2.5 ML OU (12:58)
[2016-12-11] MEDS ORDERED: MULTIVITAMINS1 EAC3 PO (12:58)
[2016-12-11] MEDS ORDERED: IRON325 MG PO (12:58)
[2016-12-11] MEDS ORDERED: HYDROCODON-ACE1 EAC7 PO (12:58)
[2016-12-11] MEDS ORDERED: LOPRESSOR PO (13:00)
[2016-12-12 05:32] LABS: BASOPHIL% 0.1 % (0-2.5); EOSINOPHIL# 0.1 X10e3 (0-0.7); EOSINOPHIL% 0.6 % (0.0-7.0); HEMATOCRIT 34.8 % (35.0-45.0); HEMOGLOBIN 11.3 gm/dL (12.0-16.0); LYMPHOCYTE% 16.4 % (17.0-45.0); MEAN CELL VOLUME 91.5 FL (83-96); MEAN CORPUSCULAR HEMOGLOBIN 29.8 PG (28-34); MEAN CORPUSCULAR HGB CONC 32.5 g/dL (30-36); MEAN PLATELET VOLUME 8.1 FL (6.5-11.5); MONOCYTE# 0.8 X10e3 (0-1.0); MONOCYTE% 6.5 % (3.0-12.0); NEUTROPHIL# 9.2 X10e3 (1.5-7.1); NEUTROPHIL% 76.4 % (40-75); PLATELET COUNT 303 X10e3 (140-420); RED CELL DISTRIBUTION WIDTH 14.8 % (11.0-15.5); WHITE BLOOD COUNT 12.1 X10e3 (4.0-10.5)
[2016-12-12 05:45] LABS: DIFF IND NO
[2016-12-12 06:16] LABS: BUN/CREATININE RATIO 27.27; CALCIUM SERUM 9.3 mg/dL (8.4-10.2); CREATININE SERUM 1.1 mg/dL (0.6-1.4); GLOM FILT RATE Estimated 46.4 mL/min (>60); POTASSIUM 4.8 mmol/L (3.5-5.1)
[2016-12-12 15:11] LABS: PROTHROMBIN TIME (PATIENT) 50.2 SECONDS (9.6-11.5)
[2016-12-12 15:21] LABS: INR 4.5
[2016-12-13 05:44] LABS: HEMATOCRIT 32.2 % (35.0-45.0); HEMOGLOBIN 10.6 gm/dL (12.0-16.0); MEAN CELL VOLUME 90.4 FL (83-96); MEAN CORPUSCULAR HEMOGLOBIN 29.8 PG (28-34); MEAN PLATELET VOLUME 8.5 FL (6.5-11.5); RED BLOOD COUNT 3.56 X10e (3.90-5.30); RED CELL DISTRIBUTION WIDTH 14.8 % (11.0-15.5); WHITE BLOOD COUNT 10.6 X10e3 (4.0-10.5)
[2016-12-13 06:07] LABS: INR 3.6; PROTHROMBIN TIME (PATIENT) 40.2 SECONDS (9.6-11.5)
[2016-12-13 06:57] LABS: BUN/CREATININE RATIO 48.57; CALCIUM SERUM 9.2 mg/dL (8.4-10.2); CREATININE SERUM 0.7 mg/dL (0.6-1.4); GLOM FILT RATE Estimated 80.1 mL/min (>60); MAGNESIUM 2.3 mg/dL (1.6-3.0); POTASSIUM 3.9 mmol/L (3.5-5.1)
[2016-12-13 13:00] LABS: BODY FLUID APPEARANCE BLOODY; BODY FLUID SOURCE BRONCHIAL LAVAGE
[2016-12-14 06:25] LABS: HEMATOCRIT 32.9 % (35.0-45.0); HEMOGLOBIN 10.6 gm/dL (12.0-16.0); MEAN CELL VOLUME 92.4 FL (83-96); MEAN CORPUSCULAR HEMOGLOBIN 29.6 PG (28-34); MEAN PLATELET VOLUME 8.3 FL (6.5-11.5); RED BLOOD COUNT 3.57 X10e (3.90-5.30); RED CELL DISTRIBUTION WIDTH 14.8 % (11.0-15.5); WHITE BLOOD COUNT 10.4 X10e3 (4.0-10.5)
[2016-12-14 06:37] LABS: INR 2.7
[2016-12-14 07:41] LABS: BUN/CREATININE RATIO 41.25; CALCIUM SERUM 8.9 mg/dL (8.4-10.2); CREATININE SERUM 0.8 mg/dL (0.6-1.4); GLOM FILT RATE Estimated 68.2 mL/min (>60); POTASSIUM 4.3 mmol/L (3.5-5.1)
[2016-12-14] MEDS ORDERED: AZITHROMYCIN250 MG PO (14:14)
[2016-12-14] MEDS ORDERED: BAYER CHEWABLE81 MG PO (14:15)
== END 2016-12-14 15:16 | disposition home health service (06) | DRG 264 ==
LOC: CED 10:08 → CEDOF 13:25 → CED 13:46 → C5C 17:01
PROVIDERS: Emergency Medicine; Internal Medicine; Internal Medicine Cardiovascular Disease; Nurse Practitioner
PROC: B24BYZZ Ultrasonography of Heart with Aorta using Other Contrast (ICD-10-PCS; 2016-12-12)
PROC: 0B9M8ZZ Drainage of Bilateral Lungs, Via Natural or Artificial Opening Endoscopic (ICD-10-PCS; principal; 2016-12-13 10:34)
PROC: 0B9D8ZX Drainage of Right Middle Lung Lobe, Via Natural or Artificial Opening Endoscopic, Diagnostic (ICD-10-PCS; 2016-12-13 10:34)
DX: I50.43 Acute on chronic combined systolic (congestive) and diastolic (congestive) heart failure (principal); J96.01 Acute respiratory failure with hypoxia; J18.9 Pneumonia, unspecified organism; J44.1 Chronic obstructive pulmonary disease with (acute) exacerbation; I27.2 Other secondary pulmonary hypertension; I48.0 Paroxysmal atrial fibrillation; Z79.01 Long term (current) use of anticoagulants; T45.515A Adverse effect of anticoagulants, initial encounter; Z95.4 Presence of other heart-valve replacement; Z95.5 Presence of coronary angioplasty implant and graft; Z95.0 Presence of cardiac pacemaker; I08.1 Rheumatic disorders of both mitral and tricuspid valves; Z96.653 Presence of artificial knee joint, bilateral; R91.1 Solitary pulmonary nodule
CPT/HCPCS: 36415; 71010; 71250; 80048; 80076; 82308; 82553; 83735; 83880; 84484; 85025; 85027; 85610; 85730; 87040; 87070; 87102; 87106; 87116; 87205; 87206; 87252; 87254; 87278; 87449; 88108; 88305; 88312; 89051; 93005; 93306; 94760; 99285; J0171; J0456; J0696; J1940

== ENCOUNTER → 2017-02-11 | Outpatient (CLI) | payer OTHER ==
[~2017-02-11] MED LIST changes: +AZITHROMYCIN250 MG PO; +BAYER CHEWABLE81 MG PO; +COUMADIN PO; +IRON325 MG PO; +MULTIVITAMINS1 EAC3 PO; +NORVASC PO; +PATIENT'S PHARMACY
--- NOTE | ~2017-02-11 | US37 ---
[facility] A Service of [facility] RADIOLOGY TEXT RESULTS PATIENT: MARTINEZ NYE V LOCATION: [facility] : 33 UNIT #: [id number] AGE: [address]: Patricia Oneal MD SEX: F ORDER DR: [id number] [facility] [address] [place], [place] [address] [id number] O MR#: [id number] Acc #: [id number] NAME: MARTINEZ NYE : 1935 SEX: F STUDY DATE/TIME: 02/11/2017 13:47 UNIT: [facility] ROOM: STUDY DESCRIPTION: US Carotid W/Doppler Bilateral Attending Physician: Patricia Oneal M.D. Referring Physician: Patricia Oneal M.D. Ordering Physician: Pily Brito A.P.R.N. Primary Care Physician: Jonathan Lorenz Jr., M.D. MEDICAL IMAGING REPORT This report is preliminary unless electronic signature is present EXAM Bilateral carotid duplex HISTORY Carotid stenosis. History of bilateral carotid endarterectomy. FINDINGS Duplex imaging of the carotid artery was performed. The right common carotid artery is patent. Internal and external carotid arteries are patent post endarterectomy with no plaque or stenosis. Velocity in the right common carotid is 73, internal 117, external 87 cm per second. Right ICA:CC ratio 1.6. On the left side the common internal and external carotid arteries are patent post endarterectomy. No plaque is seen. Velocity in the left common carotid is 74, internal 103, external 93 cm per second. Left ICA:CC ratio 1.4. Antegrade flow is seen in the right and left vertebral arteries. IMPRESSION Normal appearance of the right and left internal carotid arteries post endarterectomy. Antegrade flow is seen in the right and left vertebral arteries. Dictated by... Clay Thompson M.D. THIS IS AN ELECTRONICALLY VERIFIED REPORT Clay Thompson M.D. at 02/12/2017 4:04 PM [facility] A Service of [facility] RADIOLOGY TEXT RESULTS PATIENT: MARTINEZ NYE V LOCATION: [facility] : 33 UNIT #: [id number] AGE: [address]: Patricia Oneal MD SEX: F ORDER DR: Rhoda TD: 02/12/2017 08:52 JOB #: [id number] MEDICAL IMAGING REPORT Page 1 of 1 COPY
--- NOTE | ~2017-02-11 | CT57 ---
[facility] A Service of [facility] RADIOLOGY TEXT RESULTS PATIENT: MARTINEZ NYE V LOCATION: [facility] : 33 UNIT #: [id number] AGE: [address]: Patricia Oneal MD SEX: F ORDER DR: [id number] [place] [address] [facility]. [place], [place] [address] [id number] O MR#: [id number] [facility] #: [id number] NAME: MARTINEZ NYE : 1935 SEX: F STUDY DATE/TIME: 02/11/2017 14:30 UNIT: [facility] ROOM: STUDY DESCRIPTION: CT Chest Wo Cont Attending Physician: Patricia Oneal M.D. Referring Physician: Ptaricia Oneal M.D. Ordering Physician: Jonathan Lorenz Jr., M.D. Primary Care Physician: Jonathan Lorenz Jr., M.D. MEDICAL IMAGING REPORT This report is preliminary unless electronic signature is present EXAM CT chest without contrast INDICATIONS Follow up pneumonia. PROCEDURE Unenhanced CT of the chest. This CT exam was performed with one or more of the following radiation dose reduction techniques: automatic control, adjustment of mA and/or kV according to patient size, and iterative reconstruction. COMPARISON 12/11/2016 FINDINGS Tree-in-bud nodularity in both lungs is persistent but improving compared with the previous study. There is no new dense consolidation. Stable areas of scarring scattered in both lungs. There is no pleural fluid or pneumothorax. No adenopathy. Cardiomegaly. Coronary artery calcification. Previous CABG. Moderate sized hiatal hernia. Uncomplicated cholelithiasis. No aggressive appearing bone lesion. IMPRESSION 1. Persistent but improving of tree-in-bud nodularity in both lungs most in keeping with infectious or inflammatory, chronic small airways disease. There is no new dense consolidation. 2. Other findings as above Dictated by... Cullen Diop M.D. THIS IS AN ELECTRONICALLY VERIFIED REPORT [facility] A Service of [facility] RADIOLOGY TEXT RESULTS PATIENT: MARTINEZ NYE V LOCATION: [facility] : 33 UNIT #: [id number] AGE: [address]: Patricia Oneal MD SEX: F ORDER DR: Cullen Diop M.D. at 02/12/2017 5:00 PM RACHAEL/delmy TD: 02/12/2017 12:43 JOB #: [id number] MEDICAL IMAGING REPORT Page 1 of 1 COPY
== END | disposition home or self-care (01) ==
LOC: CCAT 01-30 13:40
DX: J18.9 Pneumonia, unspecified organism (principal); R91.1 Solitary pulmonary nodule; I65.23 Occlusion and stenosis of bilateral carotid arteries; R91.8 Other nonspecific abnormal finding of lung field; I51.7 Cardiomegaly; I25.10 Atherosclerotic heart disease of native coronary artery without angina pectoris; K44.9 Diaphragmatic hernia without obstruction or gangrene; K80.20 Calculus of gallbladder without cholecystitis without obstruction; Z98.890 Other specified postprocedural states
CPT/HCPCS: 71250; 93880

== ENCOUNTER → 2017-02-22 | Outpatient (CLI) | payer OTHER ==
--- NOTE | ~2017-02-22 | MY29 ---
[facility] A Service of [facility] RADIOLOGY TEXT RESULTS PATIENT: MARTINEZ NYE V LOCATION: [facility] : 33 UNIT #: [id number] AGE: [address]: Jonathan Lorenz MD SEX: F ORDER DR: [id number] [facility] [address] [place], [place] [address] [id number] O MR#: [id number] Acc #: [id number] NAME: MARTINEZ NYE : 1935 SEX: F STUDY DATE/TIME: 02/22/2017 11:02 UNIT: [facility] ROOM: STUDY DESCRIPTION: MY MARYCARMEN SCREENING W/ CAD BILAT Attending Physician: Jonathan Lorenz Jr., M.D. Referring Physician: Jonathan Lorenz Jr., M.D. Ordering Physician: Jonathan Lorenz Jr., M.D. Primary Care Physician: Jonathan Lorenz Jr., M.D. MEDICAL IMAGING REPORT This report is preliminary unless electronic signature is present EXAM Digital screening mammograms, 02/22/2017 HISTORY 81-year-old woman two prior right breast excisional biopsies. Annual screening. COMPARISON Mammograms date to 06/17/2007 with most recent 02/09/2015. FINDINGS Digital imaging of each breast was completed utilizing screening protocol. Review includes FDA-approved CAD device. Breast parenchyma is moderately dense with a heterogeneous pattern present. Retraction of right nipple areolar complex is noted related to previous surgery. Occasional secretory calcification present in each breast. I see no suspicious mass. There are no interval occurring microcalcifications and no architectural deformity. IMPRESSION Stable benign mammogram. Annual screening recommended. Patients over the age of 40 are entered into a reminder system with target due date for the next mammogram. A result letter will also be sent to the patient. BIRADS: 2 Benign Finding Dictated by... Arpit Zazueta M.D. THIS IS AN ELECTRONICALLY VERIFIED REPORT Arpit Zazueta M.D. at 02/25/2017 8:07 AM [facility] A Service of [facility] & [facility] RADIOLOGY TEXT RESULTS PATIENT: MARTINEZ NYE V LOCATION: [facility] : 33 UNIT #: [id number] AGE: [address]: Jonathan Lorenz MD SEX: F ORDER DR: Immanuel TD: 02/22/2017 16:10 JOB #: [id number] MEDICAL IMAGING REPORT Page 1 of 1 COPY
== END | disposition home or self-care (01) ==
LOC: CWCC 10:32
DX: Z12.31 Encounter for screening mammogram for malignant neoplasm of breast (principal); Z98.890 Other specified postprocedural states
CPT/HCPCS: G0202